=== PATIENT | female | born 1980 | race Caucasian/White ===

== ENCOUNTER 2017-08-21 00:55 | Inpatient (IN) | payer OTHER, SELFPAY ==
[2017-08-21] MEDS: Lactated Ringers 1,000 ML 50 ML IV (01:20)
[2017-08-21 01:38] LABS: Hematocrit 39.6 % (37-47); Hemoglobin 13.2 g/dl (12.0-15.0); Mean Corp Hgb Conc 33.3 g/gl (32-36); Mean Corpuscular Hgb 29.8 pg (27.0-32.0); Mean Corpuscular Volume 89.4 fL (81-99); Mean Platelet Vol. 13.5 fl (6.2-12.0); Platelet Count 139 K/mm3 (150-450); RBC Distribution Width CV 13.1 % (11.6-14.6); RBC Distribution Width SD 42.5 fl (35.1-43.9); Red Blood Count 4.43 M/mm3 (4.2-5.4); Scan Indicated on CBC? Y/N NO; White Blood Count 11.6 K/mm3 (4.4-11.0)
[2017-08-21] MEDS: Oxytocin 30 units/NS 500 ml 30 UNITS/500 ML IV.SOLN 334 UNITS IV (01:52)
[2017-08-21 02:09] VITALS: BMI 28.5
--- NOTE | 2017-08-21 02:10 | PCM.OB.VAG ---
- Problem List (1) PROM with onset of labor within 24 hours of rupture Status: Acute Qualifiers: PROM gestational age: full term Qualified Code(s): O42.02 - Full-term premature rupture of membranes, onset of labor within 24 hours of rupture Vaginal Delivery Maternal Presentation: Active Labor Amniotic Membrane Rupture Type: Spontaneous Rupture of Membrane time: 08/20/17 @ 10:00pm Amniotic Fluid Description: Clear Final DANIA: 08/28/17 Final DANIA Source: US <20 weeks Gestational age: 39 Weeks and 0 Days Date of Procedure: 08/21/17 Pre-Operative Diagnosis: PROM with Active Labor Post-Operative Diagnosis: of viable baby girl Surgery/ Procedure Performed: Spontaneous Vaginal Delivery Type of Anesthesia: None Description of Procedure: Patient presented to triage in active labor, noted that SROM occurred at 10:00pm on 08/20/17. Moderate amount of clear fluid noted. Patient found to be 7-8/90/-1 on exam. Patient progressed quickly and soon after felt urge to push. Patient delivered viable girl baby at 0140 over intact perineum. Infant head delivered OA, restituted to CHRISTINA then LOT. Anterior shoulder delivered without difficulty followed by posterior shoulder and body. Infant with spontaneous cry and respirations, mouth and nose bulb suctioned. dried and stimulated and placed on maternal chest. Apgars 9 and 9. Once umbilical cord stopped pulsing, umbilical cord clamped and cut by FOB. Placenta then delivered spontaneously via Cain mechanism intact with 3VC. FF midline @ 2FB below umbilicus. IV pitocin given per protocol for active management of the 3rd stage. Upon inspection of vaginal vault, no lacerations noted. No repair indicated. Sponge count correct. Vaginal sweep negative. Baby to breast, jo and initiated. Kristin Reynolds PROCESSING LEAD-CNM Presentation: Vertex, CHRISTINA Placental Delivery Description: Spontaneous Placenta Disposition: [facility] Cord Vessel Description: 3 Vessels Cord Entanglement: None Estimated Blood Loss: 100cc Infant A gender: Female (1 minute): 9 (5 minute): 9 Episiotomy Description: None Laceration: None Medications given after delivery: IV Pitocin Complications: None
[2017-08-21] MEDS: Oxytocin 30 units/NS 500 ml 30 UNITS/500 ML IV.SOLN 167 UNITS IV (02:22)
--- NOTE | 2017-08-21 02:22 | OP.PCM_ITS ---
- Problem List (1) PROM with onset of labor within 24 hours of rupture Status: Acute Qualifiers: PROM gestational age: full term Qualified Code(s): O42.02 - Full-term premature rupture of membranes, onset of labor within 24 hours of rupture Vaginal Delivery Maternal Presentation: Active Labor Amniotic Membrane Rupture Type: Spontaneous Rupture of Membrane time: 08/20/17 @ 10:00pm Amniotic Fluid Description: Clear Final DANIA: 08/28/17 Final DANIA Source: US <20 weeks Gestational age: 39 Weeks and 0 Days Date of Procedure: 08/21/17 Pre-Operative Diagnosis: PROM with Active Labor Post-Operative Diagnosis: of viable baby girl Surgery/ Procedure Performed: Spontaneous Vaginal Delivery Type of Anesthesia: None Description of Procedure: Patient presented to triage in active labor, noted that SROM occurred at 10: 00pm on 08/20/17. Moderate amount of clear fluid noted. Patient found to be 7-8/ 90/-1 on exam. Patient progressed quickly and soon after felt urge to push. Patient delivered viable girl baby at 0140 over intact perineum. head delivered OA, restituted to CHRISTINA then LOT. Anterior shoulder delivered without difficulty followed by posterior shoulder and body. with spontaneous cry and respirations, mouth and nose bulb suctioned. Infant dried and stimulated and placed on maternal chest. Apgars 9 and 9. Once umbilical cord stopped pulsing, umbilical cord clamped and cut by FOB. Placenta then delivered spontaneously via Cain mechanism intact with 3VC. FF midline @ 2FB below umbilicus. IV pitocin given per protocol for active management of the 3rd stage. Upon inspection of vaginal vault, no lacerations noted. No repair indicated. Sponge count correct. Vaginal sweep negative. Baby to breast, jo and initiated. Kristin Reynolds PEARL TECHNICIAN-CNM Presentation: Vertex, CHIRSTINA Placental Delivery Description: Spontaneous Placenta Disposition: [facility] Cord Vessel Description: 3 Vessels Cord Entanglement: None Estimated Blood Loss: 100cc Infant A gender: Female (1 minute): 9 (5 minute): 9 Episiotomy Description: None Laceration: None Medications given after delivery: IV Pitocin Complications: None
--- NOTE | 2017-08-21 02:26 | PCM.HP.OB ---
- Problem List (1) PROM with onset of labor within 24 hours of rupture Status: Acute Qualifiers: PROM gestational age: full term Qualified Code(s): O42.02 - Full-term premature rupture of membranes, onset of labor within 24 hours of rupture History Date of Admission: 08/21/17 Final DANIA: 08/28/17 Final DANIA Source: US <20 weeks Gestational age: 39 Weeks and 0 Days History of this : This is a 36 year-old, G [], P [], at 39 weeks gestational age. Allergies Cephalosporins Allergy (Verified 08/21/17 01:31) Rash Home Medications: Home Medications Vit No.130/Iron/FA [ Tablet] 1 tab PO DAILY 08/21/17 Smoking Status: Never smoker Alcohol: None Number of Fetus(es): 1 Heart Tracing: Category I FHT, baseline 140 with moderate variability, + accels, no decels TOCO Analysis: Ctx q 2-3 minutes, palpate strong History Past Pregnancies: Past Pregnancies Delivery Date Name GA/Weeks Outcome Route Weight Infant Gender Labor Length Anesthesia Delivery Location Provider FOB Labs: A+, Abs neg, Rubella Immune, HIV Neg, HepBsaG Neg, Syphilis Screen Neg, GC/CT Neg/Neg, GBS Neg, CBC WNL Expected Delivery Method: Spontaneous Vaginal Describe any other labor & delivery plans:: Natural Labor Number of Visits: 18 Review of Systems Constitutional: Denies: Chills, Fever, Weight Change HEENT: Denies: Head Aches, Sinus Congestion, Sinus Drainage Cardiovascular: Denies: Chest Pain, Palpitations Respiratory: Denies: Cough, Shortness of breath at rest, Sputum production Gastrointestinal: Denies: Abdominal Pain, Nausea, Vomiting Genitourinary: Denies: Dysuria Musculoskeletal: Denies: Joint Pain, Joint Tenderness Skin: Denies: Rash, Wounds Neurological: Denies: Numbness, Tingling, Focal weakness Psychiatric: Denies: Anxiety, Depression, Homicidal Ideations, Suicidal Ideations Hematologic/ Lymphatic: Denies: Easy Bruising, Easy Bleeding Physical Exam General: Alert, Oriented x3, No apparent distress HEENT: Atraumatic, Normocephalic. 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 Negative for: Vulvar lesions Estimated gestational size: Appropriate for gestational size Presentation: Cephalic Cervix Dilation (cm): 7.5 - Admission RN exam Station: -1 Effacement (%): 90 Assessment/Plan All Active Problems PROM with onset of labor within 24 hours of rupture (Acute) This is a 36 year-old, G [3], P [2], at 39 weeks gestational age, PROM with Active Labor, Category I FHT P: 1) Admit patient, Dr. Sterling OB back-up notified of admission 2) Expectant Management 3) Anticipate Kristin Reynolds APRN-RHEAM
--- NOTE | 2017-08-21 02:35 | DCINST_ITS ---
Discharge Diet: No Restrictions Discharge Activity: Return to Normal Activity, May not drive while taking narcotic pain medications., May Shower May resume sexual activity in: 4-6 weeks Additional Activity Instructions:: Nothing in the vagina for 4-6 weeks. You may return to work/school in 6 weeks. Call your doctor if your incision/area has: Continuous Slow Oozing, Sudden Increased Bleeding, Increased Pain/ Swelling, Increased Redness, Foul Smelling Discharge Call your doctor if you observe: Fever of 101 or Higher, Inability to urinate, Inability to have a bowel movement, Using more than one pad per hour Additional Instructions: If you experience any of the following, contact your healthcare provider. * Bleeding that soaks a pad every hour for 2 hours * Fever 100.4 or higher * Unrelieved incision or abdominal pain * Swelling, redness, discharge or bleeding from your incision or episiotomy site * Your incision begins to separate * Problems urinating (including inability to urinate or burning while urinating) . * Visual changes * Severe headache * Flu-like symptoms * Pain or redness in one of both of your breasts * Pain, warmth, tenderness or swelling in your legs, especially the calf area * Frequent nausea and vomiting * Symptoms of depression or anxiety If you experience any of the following, call 911 or go to the nearest Emergency Room. * Chest pain * Problems breathing * Seizure activity * Partial or complete paralysis of a body part, slurred speech, weakness or drooping of the face, or a sudden inability to walk or hold your balance Allergies/Adverse Reactions: Allergies Cephalosporins Allergy (Verified 08/21/17 01:31) Rash Medications to take at Discharge Vit No.130/Iron/FA [ Tablet] 1 tab PO DAILY 08/21/17 Please Follow Up With: Kristin Reynolds CNM When: Call to make an appointment with your doctor in 6 weeks. If you had elevated Blood Pressure or 4th degree laceration you will need to be seen in 2 weeks. Test Results: Test results from this visit will be discussed in further detail at your follow- up appointment, if applicable. Proposed Discharge Date: 08/22/17
[2017-08-21] MEDS: 0.9% Saline Lock 10 ML Syringe IV (03:29)
[2017-08-21 03:58] VITALS: BP 113/74; PULSE 88; RESP 16; TEMP 36.4
[2017-08-21 08:45] VITALS: BP 99/72; PULSE 92; RESP 15; TEMP 36.5
[2017-08-21 12:00] VITALS: BP 106/71; PULSE 98; RESP 16; TEMP 37
[2017-08-21 16:58] VITALS: BP 106/59; PULSE 94; RESP 18; TEMP 36.8; O2SAT 100
[2017-08-21 20:12] VITALS: BP 103/57; PULSE 96; RESP 18; TEMP 37.1; O2SAT 100
[2017-08-22 01:00] VITALS: BP 98/54; PULSE 88; RESP 16; TEMP 36.6
[2017-08-22 07:29] VITALS: BP 105/71; PULSE 89; RESP 18; TEMP 36.6; O2SAT 99
--- NOTE | 2017-08-22 08:39 | PCM.PN.OB ---
Patient Problems: Active and Suspected Problems PROM with onset of labor within 24 hours of rupture (Acute) Subjective: pain well controlled, average lochia, no N/V - Physical Exam General: Alert, Cooperative, No apparent distress Vital Signs Temp Pulse Resp BP Pulse Ox 97.9 F 89 18 105/71 99 08/22/17 07:29 08/22/17 07:29 08/22/17 07:29 08/22/17 07:29 08/22/17 07:29 Oxygen Delivery Method Room Air Weight: 73.028 kg Body Mass Index (BMI) 28.5 Intake and Output for Last 24 Hours 08/20/17 08/21/17 08/22/17 23:59 23:59 23:59 Intake Total 255 / 255 Output Total 500 / 500 Balance -245 / -245 Medical Necessity - Tobacco Use Smoking Status: Never smoker Assessment/Plan All Active Problems PROM with onset of labor within 24 hours of rupture (Acute) PPD#1 s/p infant and doing well desires d/c home today
== END 2017-08-22 08:50 | disposition home or self-care (01) | DRG 775 ==
PROVIDERS: Admitting Provider Obstetrics & Gynecology; Visit Provider Obstetrics & Gynecology
DX: O42.02 Full-term premature rupture of membranes, onset of labor within 24 hours of rupture (principal); Z3A.39 39 weeks gestation of pregnancy; Z37.0 Single live birth
CPT/HCPCS: 59025; 59050; 85027; 86850; 86900; 99218; J7120; A4216; G0378

== ENCOUNTER 2024-03-08 20:52 | Observation (INO) | payer OTHER, SELFPAY ==
[2024-03-08 20:53] VITALS: BP 112/74; PULSE 73; RESP 20; TEMP 36.7; O2SAT 100; BMI 23.6
[2024-03-08 21:10] LABS: Absolute Lymphocyte Count 0.74 X10^3/uL (0.83-4.51); Absolute Neutrophil Count 12.3 X10^3/uL (2.0-7.7); Basophil# 0.04 X10^3/uL; Basophil% 0.3 % (0-1); Eosinophil# 0.02 X10^3/uL; Eosinophils% 0.1 % (0-5); Hematocrit 41.5 % (37-47); Hemoglobin 14.4 g/dL (12.0-15.0); Lymphocyte # 0.74 X10^3/ul (0.83-4.51); Lymphocyte % 5.4 % (19-41); Mean Corp Hgb Conc 34.7 g/dL (32-36); Mean Corpuscular Hgb 29.6 pg (27.0-32.0); Mean Corpuscular Volume 85.4 fL (81-99); Mean Platelet Vol. 12.1 fl (6.2-12.0); Monocyte# 0.44 X10^3/uL; Monocyte% 3.2 % (0-10); NRBC Flagged by Analyzer 0 % (0-5); Neutrophil # 12.33 X10^3/uL (2.7-7.7); Neutrophil % 90.6 % (47-70); Platelet Count 150 K/mm3 (150-450); RBC Distribution Width CV 11.8 % (11.6-14.6); RBC Distribution Width SD 36.4 fl (35.1-43.9); Red Blood Count 4.86 M/mm3 (4.2-5.4); White Blood Count 13.6 K/mm3 (4.4-11.0)
[2024-03-08 21:24] LABS: Bacteria 0 SEEN /hpf (None Seen); Red Blood Cells-Urine 0 SEEN /hpf (0-5)
[2024-03-08 21:24] LABS: Internal QC Validated? YES +Cl - CLEAR BKGD; Pregnancy, Serum, hCG Quali. NEGATIVE Negative
[2024-03-08 21:26] LABS: Color, Urine Yellow (Yellow); Glucose, Dipstick Normal (Normal); Ketone-Dipstick 50 mg/dl (Negative); Leukocyte Esterase-Dipstick 25 /ul (Negative); Nitrite-Dipstick Negative (Negative); Occult Blood-Urine Negative /ul (Negative); Protein-Dipstick 15 mg/dl (Negative); Urine Bilirubin Dipstick Negative (Negative); Urine Clarity Clear (Clear); Urine Urobilinogen Normal (Normal)
[2024-03-08 21:27] LABS: ALB/GLOB Ratio 1.1 RATIO (0.9-2.4); AST(SGOT) 18 U/L (15-37); Alanine Aminotransfer ALT/SGPT 22 U/L (13-56); Albumin, Serum 3.9 g/dL (3.2-5.0); Alkaline Phosphatase 56 U/L (45-117); Anion Gap 8 (5-15); BUN 12 mg/dL (7-18); BUN/Creat Ratio 16.5 RATIO (10-20); Calcium,Total 9.1 mg/dL (8.5-10.1); Chloride 108 mmol/L (98-107); Creatinine, Serum 0.73 mg/dL (0.55-1.02); EST Glomerular Filtration Rate 93 mL/min (>60); Est Glom Filt Rate - Afr Amer 113 mL/min (>60); Estimated Creatinine Clearance 83.05 ml/min; Globulin 3.5 g/dL (2.2-4.2); Glucose 114 mg/dL (74-106); Potassium 3.7 mmol/L (3.5-5.1); Protein, Total 7.4 g/dL (6.4-8.2); Sodium Level 140 mmol/L (136-145)
[2024-03-08 21:32] LABS: Squamous Epithelial Cells - UA 0-5 SEEN /hpf (5-10); White Blood Cells 0-5 SEEN /hpf (0-5)
[2024-03-08 21:33] LABS: Mucous, Urine 2+ /hpf (<or=2+)
[2024-03-08 21:47] VITALS: BP 139/89; PULSE 89
--- NOTE | 2024-03-08 22:06 | CT_ITS ---
STUDY: CT ABDOMEN AND PELVIS WITH CONTRAST REASON FOR EXAM: Female, 43 years old. ? Appendicitis RADIATION DOSAGE (If Supplied By Facility): CTDIvol = ( 7.61 ) mGy, DLP = ( 419.80 ) mGycm TECHNIQUE: Transaxial images were obtained from the dome of the diaphragm to the symphysis pubis without oral contrast. IV 100mL Isovue-300 was administered. Sagittal and coronal images were reconstructed. Individualized dose optimization techniques were used for this CT. COMPARISON: None. FINDINGS: The visualized lung bases are unremarkable. The visualized portions of the heart are within normal limits. Normal liver. Normal gallbladder and extrahepatic biliary system. Normal spleen. Normal pancreas. Normal bilateral adrenal glands. Normal right kidney. Normal left kidney. Normal visualized stomach. Normal small intestine. Diffuse fecal retention in the colon. No definite CT evidence of appendicitis. Normal abdominal aorta. Normal inferior vena cava. Normal retroperitoneum. Normal urinary bladder. Endometrial thickening/fluid in the uterus. Mild pelvic fluid. Normal abdominal wall. Normal osseous structures. CT/Abdomen/Pelvis W IV Cont ONLY IMPRESSION: Diffuse colonic fecal retention. Endometrial thickening/fluid in the uterus. Mild pelvic fluid. Electronically Signed: Robby Maynard DO at 23:04 EST Reading Location ID and State: [facility] / [place] Tel [phone], Service support ,
[2024-03-08] MEDS: Morphine 4 MG/ML Syringe IV (22:22)
[2024-03-08] MEDS: Ondansetron 4 MG/2 ML Vial IV (22:22)
[2024-03-08] MEDS: 0.9% Normal Saline (1000mL) 1,000 ML 999 ML IV (22:22)
[2024-03-08] MEDS: Ciprofloxacin 400 MG/200 ML BAG 200 MG IV (22:22)
[2024-03-08 23:00] VITALS: BP 116/71; PULSE 81; TEMP 37.1; O2SAT 98
[2024-03-08] MEDS: Ketorolac 30 MG/ML Syringe IV (23:04)
[2024-03-08] MEDS: metroNIDAZOLE 500 MG/100 ML BAG 100 MG IV (23:24)
[2024-03-09 00:28] LABS: Lactic Acid 1.6 mmol/L (0.4-1.9)
[2024-03-09 01:00] VITALS: BP 108/69; PULSE 81; O2SAT 100
--- NOTE | 2024-03-09 02:46 | HP.PCM.SX_ITS ---
HPI - General HPI Narrative KRAIG CHUNG, is a 43 F who presents with abdominal pain that started today. She says the pain started around noon and it was periumbilical. She is now having lower abdominal pain. She does describe chills but no fever. She did have some dry heaving as well. [facility] History no medical history Home Medications ?Medication ?Instructions ?Recorded ?Last Taken ?Type vits no.130-ferrous fum 1 tab PO DAILY 08/21/17 08/19/17 08:00 History 27 mg iron-folic acid 800 mcg tablet ( Vitamin) Allergy/AdvReac Type Severity Reaction Status Date / Time Cephalosporins Allergy Rash Verified 03/08/24 20:55 Family History no significant family his Surgical History no surgical history Social History Smoking Status: Never smoker ROS Constitutional Constitutional: Reports chills; Denies anorexia, fatigue, fever(s) or headache(s) Eyes Eyes: Denies blurry vision ENT HEENT: Denies abnormal hearing Cardiovascular Cardiovascular: Denies chest pain Respiratory/Chest Respiratory/Chest: Denies cough or dyspnea Gastrointestinal Gastrointestinal: Reports abdominal pain and nausea; Denies diarrhea, dysphagia, hematemesis or vomiting Genitourinary Genitourinary: Denies change in urinary stream Musculoskeletal Musculoskeletal: Denies abnormal gait Integumentary Integumentary: Denies jaundice or new lesions Neurologic Neurologic: Denies abnormal gait or dizziness Psychiatric Psychiatric: Denies anxiety Endocrine Endocrinology: Denies flushing Vital Signs Vital Signs Vital Signs: 03/08/24 20:53 03/08/24 21:47 03/08/24 23:00 Temperature 98.1 F 98.7 F Temperature Source Temporal Oral Pulse Rate 73 89 81 Respiratory Rate 20 H Blood Pressure 112/74 139/89 H 116/71 Blood Pressure Mean 86 105 86 Pulse Ox 100 98 Oxygen Delivery Method Room Air 03/09/24 01:00 Temperature Temperature Source Pulse Rate 81 Respiratory Rate Blood Pressure 108/69 Blood Pressure Mean 82 Pulse Ox 100 Oxygen Delivery Method Weight Weight: 133 lb 6 oz Body Mass Index (BMI) 23.6 Physical Exam Const oriented x3 and no apparent distress Resp normal respiratory effort Cardio regular rate and regular rhythm GI soft to palpation Palpation: tender LLQ and RLQ Results Lab / Micro Data 03/08/24 21:05 03/08/24 21:05 Labs: Laboratory Results - last 24 hr 03/08/24 21:05: WBC 13.6 H, RBC 4.86, Hgb 14.4, Hct 41.5, MCV 85.4, MCH 29.6, MCHC 34.7, RDW Std Deviation 36.4, RDW Coeff of Kiara 11.8, Plt Count 150, MPV 12.1 H, Immature Gran % (Auto) 0.400, Neut % (Auto) 90.6 H, Lymph % (Auto) 5.4 L , [place] % (Auto) 3.2, Eos % (Auto) 0.1, Baso % (Auto) 0.3, Absolute Neuts (auto) 12.3 H, Absolute Lymphs (auto) 0.74 L, Nucleated RBC % 0, Sodium 140, Potassium 3.7, Chloride 108 H, Carbon Dioxide 24.0, Anion Gap 8, BUN 12, Creatinine 0.73, Estim Creat Clear Calc 83.05, Est GFR (MDRD) Af Amer 113, Est GFR (MDRD) Non-Af 93, BUN/Creatinine Ratio 16.5, Glucose 114 H, Calcium 9.1, Total Bilirubin 0.70, AST 18, ALT 22, Alkaline Phosphatase 56, Total Protein 7.4, Albumin 3.9, Globulin 3.5, Albumin/Globulin Ratio 1.1, Serum , Qual NEGATIVE 03/08/24 21:16: Urine Color Yellow, Urine Clarity Clear, Urine pH 7.0, Ur Specific [place] 1.010, Urine Protein 15 H, Urine Glucose (UA) Normal, Urine Ketones 50 H, Urine Occult Blood Negative, Urine Nitrite Negative, Urine Bilirubin Negative, Urine Urobilinogen Normal, Ur Leukocyte Esterase 25 H, Urine RBC 0 SEEN, Urine WBC 0-5 SEEN, Ur Squamous Epith Cells 0-5 SEEN, Urine Bacteria 0 SEEN, Urine Mucus 2+ 03/08/24 23:51: Lactic Acid 1.6 Imaging Radiology Impression Abdomen/Pelvis CT 03/08/24 22:06 IMPRESSION: Diffuse colonic fecal retention. Endometrial thickening/fluid in the uterus. Mild pelvic fluid. Electronically Signed: Robby Maynard DO at 23:04 EST Reading Location ID and State: [facility] / [place] Tel [phone], Service support , Abdomen CT 03/09/24 23:35 IMPRESSION: Moderate colonic stool burden. Enteric contrast utilized, reaching the mid small bowel. This does not extend to the colon. The appendix is once again not visualized. No inflammatory changes in the region of the cecum are seen. Electronically Signed: Jose Elliott MD at 2:07 EST , Assessment & Plan Assessment/Plan (1) Right lower quadrant abdominal pain: PLAN: Patient is having right lower abdominal pain. She had a CT scan which showed large amount of stool in the right colon but there was not visualization of the appendix. The patient had a repeat CT scan with oral contrast with the oral contrast did not make it to the cecum yet. I will admit the patient for observation. I will see if the cathartic effects of the contrast kick in and see if she has any more bowel movements overnight. We will see if she still symptomatic tomorrow and if her white count increases. I did discuss briefly exploratory laparoscopy and if her pain continues until tomorrow then I will possibly take her for exploratory laparoscopy and appendectomy. Ronni Hylton MD Pager: [facility] [address] [place] [address], [address] [place] [phone] Office:
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
[2024-03-09 03:22] VITALS: BP 109/62; PULSE 78; RESP 18; TEMP 36.8; O2SAT 99
[2024-03-09] MEDS: 0.9% Normal Saline (1000mL) 1,000 ML 100 ML IV ×2 (03:30→15:09)
[2024-03-09 03:52] VITALS: PULSE 80; RESP 16; O2SAT 100; BMI 22.7
[2024-03-09 04:00] VITALS: BP 120/80; PULSE 80; RESP 16; TEMP 36.8; O2SAT 100
[2024-03-09 08:03] LABS: Absolute Lymphocyte Count 1.12 X10^3/uL (0.83-4.51); Absolute Neutrophil Count 11.4 X10^3/uL (2.0-7.7); Basophil# 0.02 X10^3/uL; Basophil% 0.2 % (0-1); Eosinophil# 0.01 X10^3/uL; Eosinophils% 0.1 % (0-5); Hematocrit 36.9 % (37-47); Hemoglobin 12.6 g/dL (12.0-15.0); Lymphocyte # 1.12 X10^3/ul (0.83-4.51); Lymphocyte % 8.5 % (19-41); Mean Corp Hgb Conc 34.1 g/dL (32-36); Mean Corpuscular Hgb 29.6 pg (27.0-32.0); Mean Corpuscular Volume 86.6 fL (81-99); Mean Platelet Vol. 13.2 fl (6.2-12.0); Monocyte% 3.8 % (0-10); NRBC Flagged by Analyzer 0 % (0-5); Neutrophil # 11.44 X10^3/uL (2.7-7.7); Neutrophil % 86.7 % (47-70); Platelet Count 113 K/mm3 (150-450); RBC Distribution Width CV 11.9 % (11.6-14.6); RBC Distribution Width SD 37.7 fl (35.1-43.9); Red Blood Count 4.26 M/mm3 (4.2-5.4); White Blood Count 13.2 K/mm3 (4.4-11.0)
[2024-03-09 08:36] LABS: Anion Gap 4 (5-15); BUN 8 mg/dL (7-18); BUN/Creat Ratio 8.7 RATIO (10-20); Calcium,Total 8.1 mg/dL (8.5-10.1); Chloride 113 mmol/L (98-107); Creatinine, Serum 0.92 mg/dL (0.55-1.02); EST Glomerular Filtration Rate 71 mL/min (>60); Est Glom Filt Rate - Afr Amer 86 mL/min (>60); Glucose 105 mg/dL (74-106); Potassium 3.8 mmol/L (3.5-5.1); Sodium Level 143 mmol/L (136-145)
[2024-03-09] MEDS: Acetaminophen 325 MG Tablet 650 MG PO (09:23)
[2024-03-09 10:00] VITALS: BP 118/72; PULSE 78; RESP 14; TEMP 36.6; O2SAT 98
--- NOTE | 2024-03-09 11:25 | PN_ITS ---
Progress Note I rounded on the patient this morning. The patient reports that she has not needed any pain medicine since the emergency room last night. She says that she has not having the sharp pain that she was yesterday. She is having some lower abdominal pain but it is bilateral. She denies fevers or chills or nausea or vomiting. Overall she says she feels better than last night. I believe this is more likely constipation than appendicitis. I am ordering her a dose of MiraLAX. I will also order her clear liquids. If she tolerates clears and has a large bowel movement and is feeling better I will discharge her home. Otherwise I will keep her overnight and if diet or time makes anything worse I will plan for surgery tomorrow morning. Recheck labs in the morning as well. Ronni Hylton MD Pager: [facility] [address] [place] [address], [address] [place] [address] Office:
[2024-03-09] MEDS: Polyethylene Glycol 3350 17 GM PACKET PO ×2 (11:44→16:38)
[2024-03-09 16:14] VITALS: BP 131/93; PULSE 90; RESP 14; TEMP 36.3; O2SAT 100
[2024-03-09] MEDS: Fleet Enema 133 ML RC (16:38)
--- NOTE | 2024-03-09 23:35 | CT_ITS ---
INDICATION: RLQ pain EXAMINATION: CT ABDOMEN AND PELVIS WITHOUT CONTRAST - CT Abdomen And Pelvis W/O Contrast Injection TECHNIQUE: Helically acquired images were obtained of the abdomen and pelvis without oral or IV contrast. A radiation dose optimization technique was used for this scan. IV Contrast dosage and agent: None. Oral contrast: Yes. RADIATION DOSAGE (If Supplied By Facility): CTDIvol = ( 6.45 ) mGy, DLP = ( 309.26 ) mGycm COMPARISON: Prior study dated: 03/08/2024 FINDINGS: LOWER CHEST: Lung bases are clear. No cardiomegaly or pericardial effusion. LIVER: The liver is normal in size, shape, and attenuation. No focal mass. GALLBLADDER AND BILIARY TREE: The gallbladder is normally distended. No gallstones. No gallbladder wall thickening or edema. No intra- or extrahepatic biliary ductal dilation. PANCREAS: No focal cystic or solid mass. SPLEEN: Normal size without focal cystic or solid mass. ADRENAL GLANDS: No nodules. KIDNEYS AND URETERS: Normal renal size and position. No hydronephrosis or nephrolithiasis. Symmetric excretion. PERITONEUM: The pelvic free fluid is not clearly identified on this study. The bladder is contrast-filled with associated mild artifact limiting the evaluation. No free air . . BOWEL: Contrast in the stomach. The stomach is unremarkable. The enteric contrast extends through the mid small bowel. This does not reach the colon. Moderate diffuse colonic stool burden. The appendix is not identified. No inflammatory changes are seen at the cecum. LYMPH NODES: No enlarged mesenteric or retroperitoneal lymph nodes. VESSELS: Aorta is non-dilated. URINARY BLADDER: Normal distended bladder with contrast filled appearance resulting in mild artifact. REPRODUCTIVE ORGANS: No pelvic masses. ABDOMINAL WALL: No discrete abdominal or pelvic wall hernia. BONES: No acute or suspicious osseous abnormality. CT/Abdomen/Pel W ORAL Cont Only IMPRESSION: Moderate colonic stool burden. Enteric contrast utilized, reaching the mid small bowel. This does not extend to the colon. The appendix is once again not visualized. No inflammatory changes in the region of the cecum are seen. Electronically Signed: Jose Elliott MD at 2:07 EST ,
== END 2024-03-09 19:28 | disposition home or self-care (01) ==
LOC: ED 03-09 02:52 → MS3 03-09 03:07
PROVIDERS: Admitting Provider Surgery; Emergency Provider Emergency Medicine; PCP Student in an Organized Health Care Education/Training Program; Visit Provider Surgery
DX: K59.00 Constipation, unspecified (principal); R10.31 Right lower quadrant pain; D72.829 Elevated white blood cell count, unspecified
CPT/HCPCS: 36415; 74176; 74177; 80048; 80053; 81001; 83605; 84703; 85025; 96361; 96365; 96367; 96375; 99221; 99283; Q9967; A4216; G0378; J0744; J2405